=== PATIENT | female | born 1995 | race Asian ===

== ENCOUNTER 2024-06-26 09:42 | Day surgery (SDC) | payer BC ==
[~2024-06-26] VITALS: Ht 161 cm; Wt 62.1 kg
[2024-06-26 10:26] LABS: HCG,QUAL RESULT NEGATIVE (NEGATIVE)
[2024-06-26] MEDS ORDERED: SEVOFLURANE 15 MIN GAS INH ONE (12:04)
[2024-06-26] MEDS ORDERED: ONDANSETRON HCL 4 MG/2 ML VIAL ONE (12:04)
[2024-06-26] MEDS ORDERED: WATER FOR IRRIGATION,STERILE 1,000 ML IRRIG.SOLN IR ONE (12:04)
[2024-06-26] MEDS ORDERED: PROPOFOL 200MG/ 20ML VIAL (DIPRIVAN) IV ONE (12:04)
[2024-06-26] MEDS ORDERED: NS IRRIG SOLN 1000 ML IR ONE (12:04)
[2024-06-26] MEDS ORDERED: LR 1,000 ML IV.SOLN IV ONE (12:04)
[2024-06-26] MEDS ORDERED: KETOROLAC TROMETHAMINE 30 MG VIAL ONE (12:04)
[2024-06-26] MEDS ORDERED: METOCLOPRAMIDE HCL 10 MG/2 ML VIAL IVP PRN (12:30)
[2024-06-26] MEDS ORDERED: HYDROmorphone 1 MG/ML INJ. CARTRIDGE IVP PRN (12:30)
[2024-06-26] MEDS ORDERED: ACETAMINOPHEN 500 MG TABLET PO ONE (12:30)
[2024-06-26] MEDS ORDERED: ONDANSETRON HCL 4 MG/2 ML VIAL IVP PRN (12:30)
[2024-06-26] MEDS ORDERED: KETOROLAC TROMETHAMINE 30 MG VIAL IVP PRN (12:30)
[2024-06-26 13:42] VITALS: O2SAT 98
[2024-06-26 15:30] VITALS: BP_SYST 112; PULSE 62; RESP 20
== END 2024-06-26 14:22 | disposition home or self-care (01) ==
LOC: SDS 09:42 → SMU 09:43 → SDS 14:18
PROVIDERS: ATTEND Obstetrics & Gynecology
DX: N87.1 Moderate cervical dysplasia (principal); G43.909 Migraine, unspecified, not intractable, without status migrainosus; F12.90 Cannabis use, unspecified, uncomplicated; Z91.013 Allergy to seafood; Z87.891 Personal history of nicotine dependence; Z79.899 Other long term (current) drug therapy
CPT/HCPCS: 87081; 57522; 84703; 88305; 88307; J1885; J2405; J2704; J7120